=== PATIENT | female | born 2005 | race African-American/Black ===

== ENCOUNTER 2025-06-21 17:19 | Outpatient (REF) | payer OTHER, SELFPAY ==
--- NOTE | ~2025-06-21 | MR_ITS ---
CLINICAL HISTORY: EFFUSIN INSTABILITY MR right knee without gadolinium Comparison: None provided Findings: Bipartite patella. No fractures. No pathologic bone lesions. No cartilage defect. Moderate joint effusion. Anterior and posterior cruciate ligaments are intact. Collateral ligaments are intact. Patellar retinacula and iliotibial band are intact. No tears of the quadriceps, patellar, popliteus, or flexor tendons. There are no meniscal tears. IMPRESSION: 1. Moderate joint effusion. 2. Bipartite patella. This document has been electronically signed by: Deedee Bernard MD on 06/21/2025 18:18:30
--- OUTSIDE RECORDS SUMMARY | 2025-06-21 17:23 | XMS_ITS | Clinical Summary ---
Author Organization [facility] [employer] Address [address] [place] [phone] Phone Care Team Providers Care Surgical Aides Teacher Name Role Phone Kinsey Bonilla MD Primary Care Provider Allergies Active Allergy Reactions Criticality Noted Date Comments No Known Drug Allergy 09/12/2014 Medications No known medications Active Problems Problem Noted Date Diagnosed Date Hyperlipidemia 08/21/2018 Resolved Problems Problem Noted Date Diagnosed Date Resolved Date Healthy adolescent on routin e physical examination 01/07/2021 06/16/2022 Screening for depression 202001/07/2021 06/16/2022 Immunizations Immunization Administration Dates Next Due DTaP 02/02/2008,07/14/2006,05/11/2006 ,02/10/2006 DTaP / IPV 11/16/2010 Flu Quad,Split => 3 years 09/12/2014 HPV 9-Valent 11/16/2019,07/17/2018 Hep B / HiB 06/16/2007,05/11/2006,02/10/2006 Hepatitis A 02/02/2008,02/13/2007 IPV 02/02/2008,05/11/2006,02/10/2006 Influenza Split 07/21/2010 MMRV 11/16/2010,02/13/2007 Meningococcal B, OMV 06/16/2022 Meningococcal Conjugate 06/16/2022,07/17/2018 Pneumococcal Conjugate 06/16/2007,07/14/2006,,02/10/2006 Tdap 07/12/2017 Social History Tobacco Use Types Packs/Day Years Used Date Smoking Tobacco: Never Smokeless Tobacco: Never Tobacco Cessation:Counseling Given: No Alcohol Use Standard Drinks/Week Comments No 0 (1 standard drink = 0.6 oz pur e alcohol) PHQ-2 Answer Date Recorded PHQ-9 Initial Score 0 06/16/2022 Health Literacy Answer Date Recorded Trouble understanding healthcare information Not on file 02/17/2021 Inadequate Housing Answer Date Recorded Type of residence: Not on file 08/27/2022 Do you worry about losing your housing? Not on f ile 08/27/2022 Within the past 12 months, h ave you or the family members you live with been unable to get heat, electricity, or water when it was really needed? Not on file 08/27/2022 Comments Not on file 08/27/2022 Medication Challenges Answer Date Recor ded Any problems buying or takin g your prescriptions since your last physician visit? No 06/16/2022 Medication Challenges Types Not on file 05/28 Medication Challenges - Other reasons Not on kerry e 06/16/2022 Comments Unknown Sex and Gender Information Value Date Recorded Sex Assigned at Not on file Legal Sex Female 5:41 PM EDT Gender Identity Not on file Sexual Orientation Not on file Last Filed Vital Signs Vital Sign Reading Time Taken Comments Blood Pressure 111/68 06/16/2022 3:06 PM EDT Pulse 61 06/16/2022 3:06 PM EDT Temperature 36.2 C (97.2 F) 07/12/2017 12:41 PM EDT Respiratory Rate - - Oxygen Saturation - - Inhaled Oxygen Concentration - - Weight 59.7 kg (131 lb 9.6 oz) 06/16/2022 3:06 P M EDT Height 163.8 cm (5' 4.5 ) 06/16/2022 3:06 PM EDT Body Mass Index 22.24 06/16/2022 3:06 PM EDT Body Mass Index Percentile 67.58% 06/16/2022 3:0 6 PM EDT Growth Chart: CDC (Girls, 2- 20 Years) Plan of Treatment Health Maintenance Due Date Last Done Comments Meningococcal B Vaccine (2 of 2 - Bexsero SCDM 2-dose series) 12/14/2022 06/16/2022 Well Child Visit 06/16/2023 06/16/2022, , 11/16/2019, Additional history exists COVID-19 Vaccine (2 - 5-26 season) 2025 07/03/2021 Influenza Vaccine 05/27/2025 09/12/2014, 07/21/2010 DTaP,Tdap,and Td Vaccines (7 - Td or Tdap) 07/12/2027 07/12/2017, 11/16/2010, 02/02/2008, Additional history exists HIB Vaccine Completed 06/16/2007, 04/26, 02/10/2006 Hepatitis B Vaccine Completed 06/16/2007, 05/11/2006, 02/10/2006 Pneumococcal Vaccine: 0-49 years Aged Out 06/16/2007, 07/14/2006, 05/11/2006, Additional history exists No longer eligible based on patient's age to complete this topic Hepatitis A Vaccine Completed 02/02/2008, 7 IPV VACCINES Completed 11/16/2010, 05/2008, 05/11/2006, Additional history exists Measles, Mumps, Rubella Vaccine Completed 11/16/2010, 02/13/2007 Varicella Vaccine Completed 11/16/2010, 02/13/2007 HPV Vaccine Completed 11/16/2019, 07/17/2018 Meningococcal Vaccine Completed 06/16/2022, 018 Insurance [employer] Care Teams Surgical Aides Teacher Relationship Specialty Start Date End Date Kinsey Bonilla MD [phone] [place] [address] [address] [place] [address] PCP - General Pediatrics 06/16/22
--- OUTSIDE RECORDS SUMMARY | 2025-06-21 17:23 | XMS_ITS | Clinical Summary ---
Author Organization [facility] Address [address] [address] Phone Care Team Providers Care General Accountant Name Role Phone Pcp, Unknown Primary Care Provider Unavailabl e Allergies No known active allergies Medications ibuprofen (MOTRIN) 600 mg tablet (To-Go) Take 1 tablet by mouth every 6 hours as needed for pain. 06/19/2025 Active Encounters Date Type Department Care Team Description 06/19/2025 10:42 PM EDT - 06/20/2025 12:15 AM EDT Emergency [facility] [address] [place] [address] Discharge Disposition: Home or Self Care from Last 3 Months Social History Tobacco Use Types Packs/Day Years Used Date Smoking Tobacco: Never Assessed Education Answer Date Recorded Are you interested in more education? Not on kerry e 06/20/2025 Are you concerned about learning? Not on file 06/20/2025 No 06/20/2025 No 06/20/2025 Food Answer Date Recorded Within the past 6 months we worried whether our food would run out before we got money to buy more. Never True 06/19/2025 Within the past 6 months the food we bought just didn't last and we didn't have enough money to get more. Never True Residential Stability Answer Date Recor ded What is your housing situation today? I have kristie sing 06/19/2025 How many times have you move d in the past 12 months? Zero (I did not move) 06/19/2025 Paying for Meds Answer Date Recorded Do you have trouble paying for medicines? No 06/19/2025 Paying Utility Bills Answer Date Record ed Do you have trouble paying your heating or elect ricity bill? No 06/19/2025 Transportation Answer Date Recorded Has the lack of transportati on kept you from medical appointments or from getting medications? No 06/19/2025 Digital Access Answer Date Recorded No 06/19/2025 Yes 06/19/2025 Do you have reliable internet access at home? Ye s 06/19/2025 Do you have a device (e.g., phone, tablet, computer) with a working camera? Yes 06/19/2025 Intimate Partner Violence Answer Date R ecorded Are you denied basic needs s uch as food, clothing, or medical care? No 06/19/2025 In the past 12 months have y ou been in a relationship with a person who hurts, threatens, or tries to control you? No 06/19/2025 Are you denied basic needs s uch as food, clothing, or medical care? No 06/19/2025 In the past 12 months have y ou been in a relationship with a person who hurts, threatens, or tries to control you? No 06/19/2025 Comments Unknown Sex and Gender Information Value Date Recorded Sex Assigned at Not on file Legal Sex Female 8:49 PM EDT Gender Identity Not on file Sexual Orientation Not on file Last Filed Vital Signs Vital Sign Reading Time Taken Comments Blood Pressure 123/8 06/19/2025 11:02 PM EDT Pulse 83 06/19/2025 11:02 PM EDT Temperature 36.1 C (97 F) 06/19/2025 11:02 PM EDT Respiratory Rate 16 06/19/2025 11:02 PM EDT Oxygen Saturation 99% 06/19/2025 11:02 PM EDT Inhaled Oxygen Concentration - - Weight 58.1 kg (128 lb) 06/19/2025 11:02 PM EDT Height 162.6 cm (5' 4.02 ) 06/19/2025 11:02 PM E DT Body Mass Index 21.96 06/19/2025 11:02 PM EDT Plan of Treatment Health Maintenance Due Date Last Done Comments MMR VACCINES (1 of 1 - Stand jerry series) 2006 DEVELOPMENTAL/BEHAVIORAL SCR EENING (PHQ, PSC, or SWYC) 2008 COMBINED DTaP,Tdap,Td (1 - Tdap) 2012 DEPRESSION SCREENING 2017 SMOKING Hx and SMOKELESS TOB ACCO SCREENING 2018 VARICELLA VACCINES (1 of 2 - 13+ 2-dose series) 2018 HPV VACCINES (1 - 3-dose series) 2020 CHLAMYDIA SCREENING 2021 MENINGOCOCCAL VACCINES (B) ( 1 of 2 - Standard) 2021 ADOLESCENT UNIVERSAL LIPID SCREENING 2022 HEPATITIS C SCREENING 12/16/2023 HIV ONE-TIME SCREENING (18-6 5 YEARS) 12/16/2023 HEPATITIS B VACCINES (1 of 3 - 19+ 3-dose series) 2024 INFLUENZA VACCINE (#1) 2025 COVID-19 VACCINE ( - 2023-2 5 season) 2025 BMI ASSESSMENT 06/19/2026 06/19/2025 HEPATITIS A VACCINES Aged Out No long er eligible based on patient's age to complete this topic HIB VACCINES Aged Out No longer eligi ble based on patient's age to complete this topic MENINGOCOCCAL VACCINES (ACWY) Aged Out No longer eligible based on patient's age to complete this topic PNEUMOCOCCAL VACCINES (0-49 years) Aged Out No longer eligible based on patient's age to complete this topic Medical Devices Not on file Procedures Procedure Name Priority Date/Time Associated Diagnosis Comments XR KNEE 4 OR MORE VIEWS (RIGHT) Routine 06/19/2025 9:52 PM EDT from Last 3 Months Results * XR KNEE 4 OR MORE VIEWS (RIGHT) (06/19/2025 9:52 PM EDT) Anatomical Region Laterality Modality Knee Right Computed Radiogr aphy 06/19/2025 11:0 6 PM EDT Impressions 06/19/2025 11:07 PM EDT No displaced fracture or dislocation. Narrative 06/19/2025 11:07 PM EDT XR KNEE 4 OR MORE VIEWS (RIGHT) Referring clinician's provided indication for this examination in Epic: Knee instability; Pain COMPARISON: None FINDINGS: Right Knee: No displaced fracture or dislocation. Bipartite patella. Joint effusion is present. Procedure [facility]on [facility] XR KNEE 4 OR MORE VIEWS (RIGHT) Referring clinician's provided indication for this examination in Epic:Knee instability; Pain COMPARISON: None FINDINGS: Right Knee: No displaced fracture or dislocation. Bipartite patella. Jointeffusion is present. IMPRESSION: No displaced fracture or dislocation. Curt Alcantara MD IMG XR LOWER EXTREMITY Final Re sult from Last 3 Months Insurance [employer] FRANCO Care Teams General Accountant Relationship Specialty Start Date End Date Pcp, Unknown PCP - General 06/19/25 Additional Source Comments The information contained in this document represents components of the legal health record. It is not the complete legal health record.[facility]
== END 2025-06-21 17:20 | disposition home or self-care (01) ==
LOC: HO.MRI 17:19
PROVIDERS: Visit Provider Student in an Organized Health Care Education/Training Program
DX: M25.461 Effusion, right knee (principal); M25.361 Other instability, right knee
CPT/HCPCS: 73721

== ENCOUNTER → 2025-06-21 17:23 | Outpatient (BNV) | payer OTHER, SELFPAY | PROVIDERS: Visit Provider Radiology Diagnostic Radiology | DX: M25.561 Pain in right knee (principal); M22.8X1 Other disorders of patella, right knee | CPT/HCPCS: 73721 ==